=== PATIENT | female | born 1965 | race Two or more races ===

== ENCOUNTER 2020-07-09 08:15 | Emergency (ER) | payer SELFPAY ==
[~2020-07-09] VITALS: Ht 165.1 cm; Wt 68.9 kg
--- NOTE | 2020-07-09 08:24 | NUR ---
CORINNE ARREGUIN From Home "Anxiety/stressed. Was sitting-fell backwards hit back of head. on room air, breathing evenly and unlabored. Connected to the monitor and pulse ox. kept comfortable, will continue to monitor accordingly.
[2020-07-09] MEDS ORDERED: ACETAMINOPHEN ES 500 MG TABLET ONE (09:26)
[2020-07-09] MEDS ORDERED: ACETAMINOPHEN 325 MG TABLET PO ONE (09:30)
[2020-07-09 09:59] VITALS: BP 129/71
--- NOTE | 2020-07-09 09:59 | NUR ---
Patient discharged to home in stable condition. Written and verbal after care instructions given. Patient verbalizes understanding of instruction.IV removed. Catheter intact and site benign. Pressure and 4x4 applied to site. No bleeding noted. Picked up by .
== END 2020-07-09 09:59 | disposition home or self-care (01) ==
LOC: ER 08:17
DX: S00.03XA Contusion of scalp, initial encounter (principal); F10.129 Alcohol abuse with intoxication, unspecified; M54.2 Cervicalgia; I10 Essential (primary) hypertension; E03.9 Hypothyroidism, unspecified; Z88.0 Allergy status to penicillin; W01.0XXA Fall on same level from slipping, tripping and stumbling without subsequent striking against object, initial encounter; Y93.89 Activity, other specified; Y92.89 Other specified places as the place of occurrence of the external cause; Y99.8 Other external cause status; Y90.9 Presence of alcohol in blood, level not specified
CPT/HCPCS: 70450; 72125; 99285; A6403